=== PATIENT | female | born 1995 | race Caucasian/White ===

== ENCOUNTER 2021-05-17 10:51 | Emergency (ER) | payer OTHER ==
[~2021-05-17] VITALS: Ht 167.6 cm; Wt 172.4 kg
[2021-05-17 10:55] VITALS: BP 162/106
[2021-05-17 10:56] VITALS: BP 162/106
== END 2021-05-17 13:33 | disposition left against medical advice (07) ==
LOC: EDH 10:51
DX: M79.674 Pain in right toe(s) (principal); Z53.21 Procedure and treatment not carried out due to patient leaving prior to being seen by health care provider

== ENCOUNTER 2023-07-01 00:33 | Emergency (ER) | payer BC, OTHER ==
[~2023-07-01] VITALS: Ht 165.1 cm; Wt 182.5 kg
[2023-07-01] MEDS ORDERED: CHARCOAL/SORBITOL 50 GM/240 ML SUSP ONE (00:44)
[2023-07-01] MEDS ORDERED: CHARCOAL/SORBITOL 50 GM/240 ML SUSP PO SCH (01:00)
[2023-07-01 01:13] LABS: BASOPHILS # (AUTO) 0.05 K/uL (0.00-0.20); BASOPHILS % (AUTO) 0.6 % (0.0-5.0); EOSINOPHILS # (AUTO) 0.46 K/uL (0.00-0.70); EOSINOPHILS % (AUTO) 5.2 % (0.0-8.0); HEMATOCRIT 40.8 % (36-48); IMMATURE GRANULOCYTE ABSOLUTE 0.02 K/uL (0-1); LYMPHOCYTES % (AUTO) 33.6 % (21.0-51.0); MEAN CORPUSCULAR HEMOGLOBIN 27.9 pg (27.0-33.0); MEAN CORPUSCULAR HGB CONC 32.4 g/dL (32.0-36.0); MEAN CORPUSCULAR VOLUME 86.3 fL (79-99); MONOCYTES % (AUTO) 11.6 % (3.0-13.0); NEUTROPHILS # (AUTO) 4.3 K/uL (1.8-7.7); NEUTROPHILS % (AUTO) 48.8 % (40.0-77.0); PLATELET COUNT (AUTO) 336 K/uL (130-400); RED BLOOD CELL COUNT(AUTO) 4.73 MIL/uL (4.00-5.50); RED CELL DISTRIBUTION WIDTH 14.3 % (11.0-15.5); WHITE BLOOD COUNT (AUTO) 8.8 K/uL (4.8-10.8)
[2023-07-01 01:22] LABS: CARBON DIOXIDE 28 mmol/L (21-32); CHLORIDE 105 mmol/L (101-111); CREATININE 0.8 mg/dL (0.5-1.5); GLOMERULAR FILTR. RATE CALC 102 mL/min (>90); GLUCOSE,RANDOM 113 mg/dL (70-105); POTASSIUM 3.6 mmol/L (3.5-5.1); SODIUM SERUM 141 mmol/L (136-145); UREA NITROGEN, BLOOD 17 mg/dL (7-18)
[2023-07-01 01:26] LABS: ALANINE AMINOTRANSFERASE 30 U/L (12-78); ALBUMIN 3.2 g/dL (3.5-5.0); ALCOHOL, BLOOD < 3 mg/dL (0-10); ASPARTATE AMINOTRANSFERASE 18 U/L (10-37); BILIRUBIN,TOTAL 0.2 mg/dL (0.2-1.0); CREATINE KINASE, TOTAL 48 U/L (21-232); TOTAL PROTEIN, SERUM 7.5 g/dL (6.0-8.3)
[2023-07-01 01:29] LABS: ACETAMINOPHEN < 1 mcg/mL (10-30); SALICYLATE < 2.8 mg/dL (2.8-20.0)
[2023-07-01] MEDS ORDERED: ONDANSETRON 4MG INJ IVP ONE (01:30)
[2023-07-01 01:39] LABS: APPEARANCE,URINE CLEAR (CLEAR); BILIRUBIN,URINE NEGATIVE (NEGATIVE); COLOR,URINE LIGHT-YELLOW (YELLOW); GLUCOSE, URINE (UA) NEGATIVE (NEGATIVE); KETONES,URINE NEGATIVE (NEGATIVE); LEUKOCYTE ESTERASE ,URINE 25 Leu/uL (NEGATIVE); NITRATE,URINE NEGATIVE (NEGATIVE); OCCULT BLOOD,URINE NEGATIVE (NEGATIVE); PH,URINE 5.5 (5.0-8.0); PROTEIN,URINE NEGATIVE (NEGATIVE); UROBILINOGEN,URINE 0.2 mg/dL (0.2-1.0)
[2023-07-01 01:43] LABS: ADD UA MICROSCOPIC YES
[2023-07-01 01:45] LABS: BACTERIA,URINE RARE /HPF (None Seen); MUCUS,URINE RARE LPF (None Seen); SQUAMOUS EPITHELIAL CELL,UR RARE /HPF (0-2)
[2023-07-01 01:51] LABS: AMPHET/METH SCREEN,URINE NEGATIVE (NEGATIVE); BARBITURATE SCREEN, URINE NEGATIVE (NEGATIVE); BENZODIAZEPINES SCREEN,URINE NEGATIVE (NEGATIVE); CANNABINOID SCREEN,URINE NEGATIVE (NEGATIVE); COCAINE SCREEN,URINE NEGATIVE (NEGATIVE); OPIATE SCREEN,URINE POSITIVE (NEGATIVE); PHENCYCLIDINE SCREEN,URINE NEGATIVE (NEGATIVE)
[2023-07-01 04:27] VITALS: BP 148/89; PULSE 89; RESP 16; O2SAT 96
[2023-07-01] MEDS ORDERED: CYCL-309 PO (04:31)
[2023-07-01] MEDS ORDERED: GABA300C PO (04:31)
[2023-07-01] MEDS ORDERED: IBUP-1493 PO (04:31)
== END 2023-07-01 04:38 | disposition home or self-care (01) ==
LOC: EDH 00:33
DX: M54.50 Low back pain, unspecified (principal); F41.9 Anxiety disorder, unspecified; E78.00 Pure hypercholesterolemia, unspecified; F31.9 Bipolar disorder, unspecified; I10 Essential (primary) hypertension; Z90.49 Acquired absence of other specified parts of digestive tract
CPT/HCPCS: 99284; 96374; 72131; 71045; 82550; 80053; 80305; 85025; 81001; 36415; 93005; J2405; G0481

== ENCOUNTER → 2025-01-01 | Outpatient (CLI) | payer OTHER ==
[~2025-01-01] VITALS: Ht 12.7 cm; Wt 191.0 kg
[~2025-01-01] MED LIST: CYCL-309 PO; GABA300C PO; IBUP-1493 PO
--- NOTE | 2025-01-01 10:47 | NUR ---
BARIATRIC PRE-OP VISIT VISIT 1 OF 1 WT: 421.4 LBS DATE: Pt reported she weighed less with scale at work, drinks sweet tea daily, occasional soda, no MVI QD, had lab work in [facility] [place], [facility], mother had procedure, plans for sleeve, walks 1x per week for 30 mins, works at [employer], plans to go straight to work after procedure, work knows of restrictions post op, takes ADHD medication, plans to reach out to PCP due to getting her lab work back, A1C 5.9, vit. D 13.8, cholesterol 207, LDL ~148, HDL 47. RD reviewed educational material for pre-op and post-op diet recommendations with detailed phases of diet post-op. Pt was informed of importance of lifelong vitamin/mineral supplementation, choosing protein first during meals (pt was educated on higher protein requirements and lower carbohydrate needs), choosing low calorie, sugar free, carbonated free and caffeine beverages. RD also informed pt on lifelong commitment to exercise and dietary recommendations for optimal success post surgery. RD reviewed labs, discussed ways to reduce LDL and increase HDL, encourage MVI QD, encouraged Pt to visit PCP to correct vit. D levels. RD also reviewed nutrition facts label reading along with how to compare products and to choose low carbohydrate, high protein options. Pt encouraged to cut back on portion sizes and to avoid high sugar and high caloric beverages to promote optimal wt loss. RD provided protein supplement recommendations along with Bariatric Vitamin recommendations via graphics to patient. Pt verbalized understanding. Pt was encouraged to contact RD as questions arise and to attend support groups. Pt with several questions, all of which were answered. Fair compliance suspected. Pt will benefit from outpatient bariatric dietitian follow up post procedure. Pt to follow up with PCP for labs. Thank you for this visit. Addendum: 01/01/25 at [address] Amended: Links added.
== END | disposition home or self-care (01) ==
LOC: DTH 09:54
PROVIDERS: ATTEND Surgery
DX: E66.01 Morbid (severe) obesity due to excess calories (principal); I10 Essential (primary) hypertension; M19.91 Primary osteoarthritis, unspecified site; K21.9 Gastro-esophageal reflux disease without esophagitis; G47.33 Obstructive sleep apnea (adult) (pediatric); E78.00 Pure hypercholesterolemia, unspecified; Z68.44 Body mass index [BMI] 60.0-69.9, adult
CPT/HCPCS: 97802